=== PATIENT | male | born 1950 | race Caucasian/White ===

== ENCOUNTER 2017-09-16 09:34 | Emergency (ER) | payer MEDICARE, OTHER ==
--- NOTE | 2017-09-16 09:49 | ED Physician Documentation ---
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 He was treated with Coumadin then and has been off of his Coumadin for some time. He is noted pain in the distal part of his thigh posteriorly and in his knee. Pain is worse with standing. He has not had an injury to his knee and does not believe he has been on his feet longer than usual. He is uncertain as to the classification of this prior DVT whether this was classified is provoked or not. 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 Review of Systems Constitutional: denies: Fever Eyes: denies: Decreased vision Ears: denies: Ear pain Nose: denies: Congestion Throat: denies: Sore throat Respiratory: denies: Dyspnea, Cough GI: denies: Nausea, Vomiting : denies: Dysuria Skin: denies: Rash Musculoskeletal: reports: Extremity pain. denies: Neck pain, Back pain PD PAST MEDICAL HISTORY - Past Surgical History Past Surgical History: Yes - Present Medications Home Medications: Ambulatory Orders Medication Instructions Recorded Confirmed Aspirin [Adult Low Dose Aspirin EC] 81 mg PO DAILY 09/16/17 09/16/17 Cholecalciferol (Vitamin D3) 1,000 unit PO DAILY 09/16/17 09/16/17 [Vitamin D3] Multivitamin/Ferrous Sulfate 18 mg PO DAILY 09/16/17 09/16/17 [One-Daily Sldzv-Jsz-Izan Tab] Rivaroxaban [Xarelto] 15 mg PO BID #42 tablet 09/16/17 - Allergies Allergies/Adverse Reactions: Allergies Allergy/AdvReac Type Severity Reaction Status Date / Time No Known Drug Allergies Allergy Verified 09/16/17 09:46 - Social History Does the pt smoke?: No Smoking Status: Never smoker Does the pt drink ETOH?: Yes Does the pt have substance abuse?: No PD ED PE NORMAL - Vitals Vital signs reviewed: Yes (tachy and hypertensive ) - General General: Alert and oriented X 3, No acute distress, Well developed/nourished - HEENT HEENT: Atraumatic, PERRL, EOMI - Neck Neck: Supple, no meningeal sign - Respiratory Respiratory: No respiratory distress - Extremities Extremities: No deformity, No edema, Other (There is tenderness to the posterior aspect of the right thigh distally. There is no palpable joint effusion to the knee and the ligaments are stable. Distal n/v is intact. ) - Neuro Neuro: No motor deficit, No sensory deficit Eye Opening: Spontaneous Motor: Obeys Commands Verbal: Oriented GCS Score: 15 - Psych Psych: Normal mood, Normal affect Results - Vitals Vitals: Vital Signs - 24 hr 09/16/17 09/16/17 09:40 12:27 Temperature 36.8 C Heart Rate 104 H 64 Respiratory 16 18 Rate Blood Pressure 147/86 H 138/86 H O2 Saturation 100 100 Oxygen O2 Source Room air - Rads (name of study) Right lower extremity duplex venous Radiology: Prelim report reviewed (Impression: Positive for deep venous thrombosis from the proximal femoral vein to the popliteal through the posterior tibial and peroneal veins.), EMP read indepedently, See rad report PD MEDICAL DECISION MAKING - ED course Complexity details: reviewed old records, reviewed results, re-evaluated patient , considered differential, d/w patient ED course: 66-year-old male with a DVT in the right thigh. He does have risk factor and this is considered provoked. This is the second provoked DVT the patient has had. He is placed on Xarelto he will be on 15 mg twice daily for 3 weeks followed by 20 mg daily. Departure - Departure Disposition: 01 Home, Self Care Clinical Impression: Dvt femoral (deep venous thrombosis) Qualifiers: Chronicity: acute Laterality: right Qualified Code(s): I82.411 - Acute embolism and thrombosis of right femoral vein Condition: Stable Instructions: ED DVT Follow-Up: La Mcgrath MD [Primary Care Provider] - Prescriptions: Rivaroxaban [Xarelto] 15 mg PO BID #42 tablet Comments: Today it appears you have a deep vein thrombosis in the proximal femoral vein that goes all the way to the popliteal.This is considered a provoked DVT because of your plane travel. Treatment for this will be Xarelto 15 mg twice per day for 3 weeks followed by 20 mg daily. Follow-up Dr. La Mcgrath.
[2017-09-16] MEDS ORDERED: LIDOCAINE 1%-EPI 1:100000 20 ML MDV SUBQ STA (10:15)
[2017-09-16 12:29] VITALS: BP 138/86
--- NOTE | 2017-09-16 12:49 | Ultrasound Preliminary Report ---
Exam: US DUPLEX EXT VEINS RIGHT IMPRESSION: Positive for deep venous thrombosis from the proximal femoral vein to the popliteal throu gh the posterior tibial and peroneal veins. [facility] SITE ID: [id number]
--- NOTE | 2017-09-16 12:51 | Ultrasound Report ---
EXAM: RIGHT LOWER EXTREMITY VENOUS ULTRASOUND EXAM DATE: 09/16/2017 12:06 PM. CLINICAL HISTORY: Posterior lower thigh pain prior DVT. COMPARISON: None. TECHNIQUE: Real-time sonographic vascular imaging was performed by the core composer machine tender through the lower extremity utilizing both color-flow and Doppler spectral analysis. Multiple inside outside sales representative static yeimi ges were saved for review. FINDINGS: Common Femoral Vein (CFV): Thrombus is present. CFV-GSV Junction: Negative. Profunda Femoral Vein (PFV): Normal. Femoral Vein (FV) Prox: Thrombus is present Femoral Vein (FV) Mid: Thrombus is present Femoral Vein (FV) Dist: He is present Popliteal Vein: Thrombus is present Posterior Tibial Veins: Thrombus is present Peroneal Veins: Thrombus is present IMPRESSION: Positive for deep venous thrombosis from the proximal femoral vein to the popliteal throu gh the posterior tibial and peroneal veins. [facility] Referring Provider Line: [phone] SITE ID: [id number]
[2017-09-16] MEDS ORDERED: RIVAROXABAN 15 MG TABLET PO STA (13:04)
== END 2017-09-16 13:24 | disposition home or self-care (01) ==
LOC: ED 09:34
DX: I82.411 Acute embolism and thrombosis of right femoral vein (principal); I82.431 Acute embolism and thrombosis of right popliteal vein; I82.441 Acute embolism and thrombosis of right tibial vein; Z79.82 Long term (current) use of aspirin; Z86.718 Personal history of other venous thrombosis and embolism
CPT/HCPCS: 93971; 99283; 99284; A9270

== ENCOUNTER 2017-09-17 15:26 | Emergency (ER) | payer MEDICARE, OTHER ==
--- NOTE | 2017-09-17 15:41 | ED Physician Documentation ---
PD HPI DYSPNEA - Stated complaint Stated Complaint: SOA/WEAKNESS/DIZZY - Chief complaint Chief Complaint: Cardiac - History obtained from History obtained from: Patient - History of Present Illness Timing - onset: How many hours ago (1), Today Timing - onset during: Light activity Timing - duration: Hours (1) Timing - details: Abrupt onset (he was seen in ED yesterday for couple days leg swelling and pain, and Dx with DVT by U/S. Rx with Xarelto and discharged with low clinical symptoms. Today he was just walking and felt onset of marked dyspnea and lightheadedness/ near syncope. He felt okay with resting, but marked dyspnea with just walking about 50 feet.), Still present Inciting event(s): Exercise. No: Out of meds, URI Improved by: Rest Worsened by: Exertion (minimal) Associated symptoms: Unilateral edema. No: Fever, Cough, Wheezing, Chest pain / discomfort Similar symptoms before: Has not had sx before Recently seen: Emergency Dept (yesterday for Dx of DVT.) Review of Systems Constitutional: denies: Fever Nose: denies: Rhinorrhea / runny nose, Congestion Throat: denies: Sore throat Cardiac: reports: Pedal edema, Calf pain (right leg). denies: Chest pain / pressure, Palpitations Respiratory: reports: Dyspnea. denies: Cough, Wheezing Skin: denies: Rash, Lesions Neurologic: reports: Generalized weakness, Near syncope. denies: Focal weakness , Numbness, Syncope, Headache Endocrine: denies: Easy bruising / bleeding Immunocompromised: denies: Immunocompromised PD PAST MEDICAL HISTORY - Past Medical History Cardiovascular: Deep vein thrombosis Respiratory: None Neuro: None Endocrine/Autoimmune: None - Past Surgical History Past Surgical History: Yes General: Other HEENT: Tonsil/Adenoidectomy - Present Medications Home Medications: Ambulatory Orders Medication Instructions Recorded Confirmed Aspirin [Adult Low Dose Aspirin EC] 81 mg PO DAILY 09/16/17 09/16/17 Cholecalciferol (Vitamin D3) 1,000 unit PO DAILY 09/16/17 09/16/17 [Vitamin D3] Multivitamin/Ferrous Sulfate 18 mg PO DAILY 09/16/17 09/16/17 [One-Daily Kxkgx-Ock-Mtof Tab] Rivaroxaban [Xarelto] 15 mg PO BID #42 tablet 09/16/17 - Allergies Allergies/Adverse Reactions: Allergies Allergy/AdvReac Type Severity Reaction Status Date / Time No Known Drug Allergies Allergy Verified 09/17/17 15:39 - Social History Does the pt smoke?: No Smoking Status: Never smoker Does the pt drink ETOH?: Yes Does the pt have substance abuse?: No - Immunizations Immunizations are current?: Yes - POLST Patient has POLST: No PD ED PE NORMAL - Vitals Vital signs reviewed: Yes - General General: Alert and oriented X 3, No acute distress, Well developed/nourished - HEENT HEENT: Pharynx benign - Neck Neck: Supple, no meningeal sign, No adenopathy - Cardiac Cardiac: RRR, No murmur - Respiratory Respiratory: Clear bilaterally - Abdomen Abdomen: Soft, Non tender - Derm Derm: Normal color, Warm and dry - Extremities Extremities: Other (right leg with tenderness in calf and popliteal area with some edema in lower leg. ) - Neuro Neuro: Alert and oriented X 3, No motor deficit, Normal speech - Psych Psych: Normal mood Results - Vitals Vitals: Vital Signs - 24 hr 09/17/17 09/17/17 09/17/17 15:36 16:07 17:54 Temperature 36.4 C L 36.9 C Heart Rate 117 H 106 H 102 H Respiratory 20 18 26 H Rate Blood Pressure 128/84 H 120/78 122/80 O2 Saturation 99 99 99 09/17/17 09/17/17 18:48 19:47 Temperature 37.2 C 37.8 C H Heart Rate 109 H 109 H Respiratory 19 18 Rate Blood Pressure 136/77 H 109/69 O2 Saturation 98 99 Oxygen O2 Source Room air - Labs Labs: Laboratory Tests 09/17/17 09/17/17 09/17/17 16:00 16:00 16:00 WBC 9.5 RBC 3.61 L Hgb 10.8 L Hct 32.5 L MCV 90.1 MCH 30.1 MCHC 33.4 RDW 14.5 Plt Count 147 MPV 8.6 Neut # 6.9 H Lymph # 1.6 Gates # 0.7 Eos # 0.2 Baso # 0.1 Absolute Nucleated RBC 0.00 Nucleated RBC % 0.0 Sodium 138 Potassium 4.7 Chloride 103 Carbon Dioxide 25 Anion Gap 10.0 BUN 52 H Creatinine 1.0 Estimated GFR (MDRD) 75 L Glucose 140 H Calcium 9.3 Total Bilirubin 0.4 AST 27 ALT 33 Alkaline Phosphatase 59 B-Natriuretic Peptide 29 Total Protein 6.7 Albumin 3.8 Globulin 2.9 Albumin/Globulin Ratio 1.3 Lipase 30 - Rads (name of study) chest CT-A Radiology: Prelim report reviewed (large saddle embolus with signs of right heart strain. ), EMP read contemporaneously PD MEDICAL DECISION MAKING - ED course Complexity details: considered differential, d/w patient, d/w websphere commerce consultant ( Search Optimization Analyst at [facility], who accepts transfer and agrees patient good candidate for catheter directed TPA. Given Heparin here in ED and for transport , so can be stopped as needed for other interventions. ) Departure - Departure Disposition: 02 Transfer Acute Care Hosp Clinical Impression: Dyspnea, Near syncope Saddle embolus of pulmonary artery Qualifiers: Chronicity: acute Acute cor pulmonale presence: with acute cor pulmonale Qualified Code(s): I26.02 - Saddle embolus of pulmonary artery with acute cor pulmonale Condition: Stable
[2017-09-17] MEDS ORDERED: IOPAMIDOL-300 100 ML VIAL ONE (16:07)
[2017-09-17 16:09] LABS: BASOPHILS # (AUTO) 0.1 10^3/uL (0.0-0.1); BASOPHILS % (AUTO) 0.6 %; EOSINOPHILS # (AUTO) 0.2 10^3/uL (0.0-0.7); EOSINOPHILS % (AUTO) 1.7 %; HCT - HEMATOCRIT 32.5 % (42.0-52.0); HGB - HEMOGLOBIN 10.8 g/dL (14.0-18.0); LYMPHOCYTES # (AUTO) 1.6 10^3/uL (1.5-3.5); LYMPHOCYTES % (AUTO) 16.4 %; MEAN CORPUSCULAR HEMOGLOBIN 30.1 pg (27.0-31.0); MEAN CORPUSCULAR HGB CONC 33.4 g/dL (32.0-36.0); MEAN CORPUSCULAR VOLUME 90.1 fL (80.0-94.0); MEAN PLATELET VOLUME 8.6 fL (7.4-11.4); MONOCYTES # (AUTO) 0.7 10^3/uL (0.0-1.0); MONOCYTES % (AUTO) 7.9 %; NEUTROPHILS # (AUTO) 6.9 10^3/uL (1.5-6.6); NEUTROPHILS % (AUTO) 73.4 %; RED BLOOD COUNT 3.61 10^6/uL (4.70-6.10); RED CELL DISTRIBUTION WIDTH 14.5 % (12.0-15.0); UNCORRECTED WHITE BLOOD COUNT 9.5 x10^3/uL; WHITE BLOOD COUNT 9.5 x10^3/uL (4.8-10.8)
[2017-09-17 16:26] LABS: ALBUMIN/GLOBULIN RATIO 1.3 (1.0-2.2); BILIRUBIN,TOTAL 0.4 mg/dL (0.2-1.0); CALCIUM 9.3 mg/dL (8.5-10.3); POTASSIUM 4.7 mmol/L (3.5-5.0); TOTAL PROTEIN 6.7 g/dL (6.7-8.2)
[2017-09-17] MEDS ORDERED: IOPAMIDOL-300 100 ML VIAL IVP ONE (17:18)
--- NOTE | 2017-09-17 17:26 | CT Preliminary Report ---
Exam: CT CHEST ANGIO (PE) IMPRESSION: 1. Extensive bilateral pulmonary emboli with saddle pulmonary embolus. 2. Mild intraventricular septal bowing, which may be seen in the clinical setting of right heart stra in. 3. Large, fluid-filled hiatal hernia. Findings discussed with Dr. Alberto and Dr. Tano Canales by Dr. Martina Anegles on 09/17/2017 at 1720. [facility] The critical result notification system was initiated by Dr. Martina Angeles at 17:07 hrs on 09/17/17. The above critical findings were discussed with Tano Canales by Dr. Martina Angeles at 17:25 hrs on . SITE ID: [id number]
--- NOTE | 2017-09-17 17:29 | CT Report ---
EXAM: CT ANGIOGRAM CHEST EXAM DATE: 09/17/2017 04:52 PM. CLINICAL HISTORY: Known DVT yesterday, with dyspnea/lightheaded today. COMPARISON: None. TECHNIQUE: Routine helical imaging was performed through the chest in the pulmonary arterial phase. I V Contrast: 80 mL Isovue 300. Reconstructions: Coronal 3-D MIP reconstructions.Sagittal and coronal. In accordance with CT protocol optimization, one or more of the following dose reduction techniques w ere utilized for this exam: automated exposure control, adjustment of mA and/or KV based on patient s ize, or use of iterative reconstructive technique. FINDINGS: Pulmonary Arteries: Diagnostic quality: Adequate through the segmental arteries. Saddle pulmonary embolus with emboli in an lobar segmental and subsegmental pulmonary arteries Mild bowing of the interventricular septum. Lungs/Pleura: Minimal biapical pleural parenchymal scarring. No pleural effusion or pneumothorax. Mediastinum: No pericardial effusion. Coronary artery atherosclerosis. Large hiatal hernia, fluid filled. Thoracic Aorta: Normal course and caliber Upper Abdomen: Unremarkable. Other: Mild bilateral gynecomastia. IMPRESSION: 1. Extensive bilateral pulmonary emboli with saddle pulmonary embolus. 2. Mild intraventricular septal bowing, which may be seen in the clinical setting of right heart stra in. 3. Large, fluid-filled hiatal hernia. Findings discussed with Dr. Alberto and Dr. Tano Canales by Dr. Martina Angeles on 09/17/2017 at 1720. RADIA The critical result notification system was initiated by Dr. Martina Angeles at 17:07 hrs on 09/17/17. The above critical findings were discussed with Tano Canales by Dr. Martina Angeles at 17:25 hrs on . Referring Provider Line: [phone] SITE ID: [id number]
[2017-09-17] MEDS ORDERED: HEPARIN 25,000 UNITS/500 ML NS 25,000 UNIT/500 ML BAG IV STA (17:40)
[2017-09-17] MEDS ORDERED: HEPARIN 5,000 UNIT/ML VIAL IVP STA (17:40)
[2017-09-17 19:50] VITALS: BP 109/69
== END 2017-09-17 20:29 | disposition short-term general hospital (02) ==
LOC: ED 15:26
DX: I26.02 Saddle embolus of pulmonary artery with acute cor pulmonale (principal); R06.00 Dyspnea, unspecified; R55 Syncope and collapse; Z79.01 Long term (current) use of anticoagulants; K44.9 Diaphragmatic hernia without obstruction or gangrene; Z79.82 Long term (current) use of aspirin; Z86.718 Personal history of other venous thrombosis and embolism
CPT/HCPCS: 36415; 71275; 80053; 83690; 83880; 84484; 85025; 93005; 96365; 96366; 99284

== ENCOUNTER 2017-10-21 08:13 | Outpatient (CLI) | payer MEDICARE, OTHER ==
--- NOTE | 2017-10-21 23:41 | Ultrasound Report ---
EXAM: AORTIC DOPPLER ULTRASOUND EXAM DATE: 10/21/2017 09:31 AM. CLINICAL HISTORY: Hypertension. Screening ultrasound to exclude abdominal aortic aneurysm. COMPARISON: None. TECHNIQUE: Real-time sonographic imaging of retroperitoneal vascular structures, including color-flow , Doppler flow and spectral analysis was performed by the private eye. Multiple sales representative electric service static images were saved for review. FINDINGS: Aorta: The abdominal aorta was adequately visualized. No evidence for abdominal aortic aneurysm. Aorta: Proximal: Sagittal AP: 2.4 cm. Mid: Transverse: 1.9 x 2.2 cm. Distal: Transverse: 1.7 x 2.0 cm. Iliacs: Right Iliac: AP Dimension: 1.1 x 1.0 cm. Left Iliac: AP Dimension: 1.1 x 1.1 cm. Iliac Vessels: The visualized proximal common iliac arteries are normal in caliber. Other: None. IMPRESSION: Normal. No abdominal aortic aneurysm. [facility] Referring Provider Line: [phone] SITE ID: [id number]
== END 2017-10-21 08:14 | disposition home or self-care (01) ==
LOC: DI 08:13
PROVIDERS: ATTEND Internal Medicine
DX: I10 Essential (primary) hypertension (principal)
CPT/HCPCS: 76706

== ENCOUNTER 2018-07-30 06:04 | Day surgery (SDC) | payer MEDICARE, OTHER ==
[2018-07-30] MEDS ORDERED: LACTATED RINGERS 1,000 ML IV ONE (07:03)
[2018-07-30 08:50] VITALS: BP 101/71
[2018-07-30] MEDS ORDERED: fentaNYL 100 MCG/2 ML VIAL IVP ONE (11:25)
[2018-07-30] MEDS ORDERED: MIDAZOLAM 2 MG/2 ML VIAL IVP ONE (11:25)
== END 2018-07-30 06:05 | disposition home or self-care (01) ==
LOC: SDS 06:04
PROVIDERS: ATTEND Surgery
PROC: 0DBP8ZZ Excision of Rectum, Via Natural or Artificial Opening Endoscopic (ICD-10-PCS; 2018-07-30)
PROC: 0DBH8ZZ Excision of Cecum, Via Natural or Artificial Opening Endoscopic (ICD-10-PCS; principal; 2018-07-30 07:30)
DX: Z12.11 Encounter for screening for malignant neoplasm of colon (principal); D12.0 Benign neoplasm of cecum; K62.1 Rectal polyp; K21.9 Gastro-esophageal reflux disease without esophagitis; F17.290 Nicotine dependence, other tobacco product, uncomplicated; K64.8 Other hemorrhoids; K57.30 Diverticulosis of large intestine without perforation or abscess without bleeding
CPT/HCPCS: 45380; J7120

== ENCOUNTER 2018-11-07 14:59 | Outpatient (CLI) | payer MEDICARE, OTHER ==
--- NOTE | 2018-11-07 16:17 | Ultrasound Report ---
Reason: PHLEBITIS AND THOMBOPHLB OF DEEP VESSELS OF R LOW Procedure Date: 11/07/2018 Accession Number: [id number] / [id number] Procedure: US - Duplex Ext Veins Right CPT Code: FULL RESULT: EXAM: RIGHT LOWER EXTREMITY VENOUS ULTRASOUND EXAM DATE: 11/07/2018 04:00 PM. CLINICAL HISTORY: PHLEBITIS AND THOMBOPHLB OF DEEP VESSELS OF R LOW. COMPARISON: 09/16/2017 TECHNIQUE: Real-time sonographic vascular imaging was performed by the agricultural chemist through the lower extremity utilizing both color-flow and Doppler spectral analysis. Multiple service support representative static images were saved for review. FINDINGS: Right side Common Femoral Vein (CFV): Normal. CFV-GSV Junction: Normal. Profunda Femoral Vein (PFV): Normal. Femoral Vein (FV) Prox: Normal. Femoral Vein (FV) Mid: Normal. Femoral Vein (FV) Dist: Normal. Popliteal Vein: Normal. Posterior Tibial Veins: Normal. Peroneal Veins: Normal. Other: Nonocclusive chronic thrombosis is present in the right greater saphenous vein in the thigh. IMPRESSION: No evidence for deep venous thrombosis right lower extremity. Residual chronic nonocclusive thrombus is seen in the right greater saphenous vein. RADIA
== END 2018-11-07 15:00 | disposition home or self-care (01) ==
LOC: DI 14:59
PROVIDERS: ATTEND Internal Medicine
DX: I82.811 Embolism and thrombosis of superficial veins of right lower extremity (principal)

== ENCOUNTER 2019-09-25 14:27 | Emergency (ER) | payer MEDICARE, OTHER ==
[2019-09-25 15:51] LABS: BASOPHILS % (AUTO) 0.3 %; EOSINOPHILS % (AUTO) 0.4 %; HGB - HEMOGLOBIN 12.3 g/dL (14.0-18.0); LYMPHOCYTES # (AUTO) 0.9 10^3/uL (1.5-3.5); LYMPHOCYTES % (AUTO) 9.6 %; MEAN CORPUSCULAR HEMOGLOBIN 28.4 pg (27.0-31.0); MEAN CORPUSCULAR HGB CONC 32.3 g/dL (32.0-36.0); MEAN PLATELET VOLUME 10.5 fL (7.4-11.4); MONOCYTES # (AUTO) 0.6 10^3/uL (0.0-1.0); MONOCYTES % (AUTO) 7.1 %; NEUTROPHILS # (AUTO) 7.3 10^3/uL (1.5-6.6); NEUTROPHILS % (AUTO) 81.9 %; PLT - PLATELET COUNT 159 10^3/uL (130-450); RED BLOOD COUNT 4.33 10^6/uL (4.70-6.10)
--- NOTE | 2019-09-25 16:02 | ED Physician Documentation ---
PD HPI NVD - Stated complaint Stated Complaint: VOMITTING - Chief complaint Chief Complaint: Abd Pain - History obtained from History obtained from: Patient - History of Present Illness Timing - onset: Yesterday (Onset soon after dinner when he developed nausea and repetitive vomiting. He denied any diarrhea. He continued with nausea and vomiting through the night and into today. He started noticing some coffee- ground material today. He did not notice any blood initially. He denies any bile with it. He was having some mild intermittent upper abdominal pains but no consistent abdominal pain and no distention.) Timing - details: Abrupt onset, Still present Associated symptoms: Abdominal pain (intermittent upper abd pain), Hematemesis. No: Fever, Melena Contributing factors: Anticoagulated (He takes Eliquis twice daily after blood clots 2 years ago.). No: Sick contact, Bad food, Travel, Alcohol use Improved by: No: Eating, Vomiting Worsened by: Eating (He has had increased nausea with any attempted oral intake even with water. He will feel nauseous and have to vomit several minutes or so after trying to eat.) Similar symptoms before: Has not had sx before Recently seen: Not recently seen Review of Systems Constitutional: reports: Chills, Myalgias, Fatigue. denies: Fever Nose: denies: Rhinorrhea / runny nose, Congestion Throat: denies: Sore throat Cardiac: denies: Chest pain / pressure Respiratory: denies: Dyspnea, Cough GI: reports: Abdominal Pain, Nausea, Vomiting, Hematemesis (not initially but after vomiting through the night.). denies: Constipation, Diarrhea : denies: Dysuria, Frequency PD PAST MEDICAL HISTORY - Past Medical History Cardiovascular: High cholesterol, Pulmonary embolism Respiratory: None Endocrine/Autoimmune: None GI: GERD : Benign prostate hypertrophy HEENT: Chronic vision loss Psych: None Musculoskeletal: None Derm: None - Past Surgical History Past Surgical History: Yes General: Colonoscopy, EGD, Other HEENT: Tonsil/Adenoidectomy - Present Medications Home Medications: Ambulatory Orders Medication Instructions Recorded Confirmed Cholecalciferol (Vitamin D3) 1,000 unit PO DAILY 09/16/17 07/27/18 [Vitamin D3] Apixaban [Eliquis] 5 mg PO BID 07/27/18 07/27/18 Enoxaparin [Lovenox] 100 mg SUBQ Q12H 07/27/18 07/27/18 Multivitamin [Multivitamins] 1 each PO DAILY 07/27/18 07/27/18 Pantoprazole Sodium [Protonix] 20 mg PO DAILY 07/27/18 07/27/18 Simvastatin 10 mg PO QPM 07/27/18 07/27/18 Tamsulosin [Flomax] 0.8 mg PO QPM 07/27/18 07/27/18 - Allergies Allergies/Adverse Reactions: Allergies Allergy/AdvReac Type Severity Reaction Status Date / Time No Known Drug Allergies Allergy Verified 09/25/19 14:52 - Social History Does the pt smoke?: No Smoking Status: Never smoker Does the pt drink ETOH?: Yes Does the pt have substance abuse?: No - Immunizations Immunizations are current?: Yes - POLST Patient has POLST: No PD ED PE NORMAL - Vitals Vital signs reviewed: Yes - General General: Alert and oriented X 3, Well developed/nourished. No: No acute distress (He is holding an emesis bag with feeling of nausea and looking as if he is about to vomit.) - HEENT HEENT: Moist mucous membranes, Pharynx benign - Neck Neck: Supple, no meningeal sign, No adenopathy - Cardiac Cardiac: RRR, No murmur - Respiratory Respiratory: Clear bilaterally - Abdomen Abdomen: Soft, Non distended, No organomegaly, Other (There is some mild tenderness in the epigastric and left upper abdomen without any guarding or percussion tenderness. There is no distention.). No: Normal bowel sounds (Diminished) - Male Male : Deferred - Rectal Rectal: Deferred - Back Back: No CVA TTP - Derm Derm: Normal color, Warm and dry - Extremities Extremities: No deformity Results - Vitals Vitals: Vital Signs - 24 hr 09/25/19 09/25/19 09/25/19 14:52 16:10 18:47 Temperature 36.7 C 37.2 C 37.2 C Heart Rate 84 70 73 Respiratory 16 16 16 Rate Blood Pressure 142/80 H 125/87 H 154/94 H O2 Saturation 96 96 98 Oxygen O2 Source Room air - Labs Labs: Laboratory Tests 09/25/19 09/25/19 09/25/19 15:45 15:45 15:45 WBC 9.0 RBC 4.33 L Hgb 12.3 L Hct 38.1 L MCV 88.0 MCH 28.4 MCHC 32.3 RDW 14.0 Plt Count 159 MPV 10.5 Neut # (Auto) 7.3 H Lymph # (Auto) 0.9 L Pi[place] # (Auto) 0.6 Eos # (Auto) 0.0 Baso # (Auto) 0.0 Absolute Nucleated RBC 0.00 Nucleated RBC % 0.0 PT 13.1 H INR 1.2 APTT 27.6 Sodium 142 Potassium 3.9 Chloride 104 Carbon Dioxide 28 Anion Gap 10.0 BUN 25 H Creatinine 1.0 Estimated GFR (MDRD) 75 L Glucose 138 H Calcium 9.5 Total Bilirubin 1.0 AST 32 ALT 38 Alkaline Phosphatase 44 Total Protein 7.8 Albumin 4.7 Globulin 3.1 Albumin/Globulin Ratio 1.5 Lipase 89 H Urine Color Urine Clarity Urine pH Ur Specific Henderson Urine Protein Urine Glucose (UA) Urine Ketones Urine Occult Blood Urine Nitrite Urine Bilirubin Urine Urobilinogen Ur Leukocyte Esterase Urine RBC Urine WBC Ur Squamous Epith Cells Urine Bacteria Urine Mucus Ur Microscopic Review Urine Culture Comments Influenza A (Rapid) Influenza B (Rapid) 09/25/19 09/25/19 17:00 17:10 WBC RBC Hgb Hct MCV MCH MCHC RDW Plt Count MPV Neut # (Auto) Lymph # (Auto) Piute # (Auto) Eos # (Auto) Baso # (Auto) Absolute Nucleated RBC Nucleated RBC % PT INR APTT Sodium Potassium Chloride Carbon Dioxide Anion Gap BUN Creatinine Estimated GFR (MDRD) Glucose Calcium Total Bilirubin AST ALT Alkaline Phosphatase Total Protein Albumin Globulin Albumin/Globulin Ratio Lipase Urine Color YELLOW Urine Clarity CLEAR Urine pH 7.0 Ur Specific Henderson 1.020 Urine Protein 30 H Urine Glucose (UA) NEGATIVE Urine Ketones 15 H Urine Occult Blood NEGATIVE Urine Nitrite NEGATIVE Urine Bilirubin NEGATIVE Urine Urobilinogen 0.2 (NORMAL) Ur Leukocyte Esterase NEGATIVE Urine RBC None Seen Urine WBC 0-3 Ur Squamous Epith Cells NONE SEEN Urine Bacteria None Seen Urine Mucus Marked Strands Ur Microscopic Review INDICATED Urine Culture Comments NOT INDICATED Influenza A (Rapid) Negative Influenza B (Rapid) Negative - Rads (name of study) abd CT Radiology: Prelim report reviewed (There is a dilated portion of the upper stomach above the diaphragm and a decompressed portion in the lower stomach below the diaphragm with a twist appearance to it consistent with a gastric volvulus through the hiatal hernia. .), See rad report PD MEDICAL DECISION MAKING - ED course Complexity details: reviewed results (There is a dilated portion of the upper stomach above the diaphragm and a decompressed portion in the lower stomach below the diaphragm with a twist appearance to it consistent with a gastric volvulus through the hiatal hernia. I described this to the surgery and who was accepting of transfer.), re-evaluated patient (He had improved with some IV fluids and antiemetics. However is still feeling nauseated and did vomit some more coffee-ground materials. His blood pressure and blood count are good. However given the persistent vomiting, I did do a CT scan to ensure there are no obvious obstruction pattern or such.), considered differential (Initially with some feeling of chills and myalgias nausea and vomiting it sounded likely either food poisoning or a viral enteritis. There is no diarrhea. He did not initially have any hematemesis but subsequently after vomiting overnight did have some coffee-ground material which is concerning being on a blood thinner. His abdominal exam was benign. With just showing some mild epigastric tenderness and no peritoneal signs. We will start with IV fluids and antiemetics and acid reducing medicine.), d/w patient, d/w strategic solutions consultant (Talked with Dr. Bruno on-call for surgery who felt the patient is better at a larger facility with other specialties available.) ED course: The patient had been to [facility] previously and so that was our first choice for transfer but they did not have beds available. I talked with surgery at [facility] and he said he was able to accept the transfer given the description of the patient and the CT findings. The patient will be transferred soon to [facility] by ambulance. The surgeon did ask if we could attempt an NG tube to at least decompress the upper portion of the gastrum. Departure - Departure Disposition: 02 Transfer Acute Care Hosp Clinical Impression: Anticoagulant long-term use, Stomach volvulus Nausea and vomiting Qualifiers: Vomiting type: hematemesis Qualified Code(s): K92.0 - Hematemesis Hematemesis Qualifiers: Nausea presence: with nausea Qualified Code(s): K92.0 - Hematemesis Condition: Stable Record reviewed to determine appropriate education?: Yes
[2019-09-25 16:03] LABS: ALBUMIN 4.7 g/dL (3.2-5.5); ALBUMIN/GLOBULIN RATIO 1.5 (1.0-2.2); CALCIUM 9.5 mg/dL (8.5-10.3); TOTAL PROTEIN 7.8 g/dL (6.7-8.2)
[2019-09-25] MEDS ORDERED: ONDANSETRON 4 MG/2 ML VIAL IVP STA ×2 (16:41→18:16)
[2019-09-25] MEDS ORDERED: SODIUM CHLORIDE 0.9% 1,000 ML IV ONE ×3 (16:41→20:14)
[2019-09-25] MEDS ORDERED: FAMOTIDINE 20 MG/2 ML VIAL IVP STA (16:42)
[2019-09-25] MEDS ORDERED: ACETAMINOPHEN 1,000 MG/100 ML 100 ML IV STA (16:42)
[2019-09-25 17:07] LABS: INR 1.2 (0.8-1.2); PT - PROTHROMBIN TIME 13.1 secs (9.9-12.6)
[2019-09-25 17:11] LABS: BILIRUBIN,URINE NEGATIVE (NEGATIVE); GLUCOSE, URINE (UA) NEGATIVE (NEGATIVE); KETONES,URINE (UA) 15 mg/dL (NEGATIVE); LEUKOCYTE ESTERASE, URINE NEGATIVE (NEGATIVE); NITRITE,URINE NEGATIVE (NEGATIVE); OCCULT BLOOD,URINE NEGATIVE (NEGATIVE); PROTEIN,URINE 30 mg/dL (NEGATIVE); UROBILINOGEN,URINE 0.2 (NORMAL) E.U./dL (NORMAL)
[2019-09-25 17:14] LABS: PARTIAL THROMBOPLASTIN TIME 27.6 secs (24.9-33.3)
[2019-09-25 17:15] LABS: CLARITY,URINE CLEAR (CLEAR)
[2019-09-25 17:19] LABS: RBC,URINE None Seen /HPF (0-5); SQUAMOUS EPITHELIAL CELL,UR NONE SEEN (<= Few)
[2019-09-25 17:20] LABS: BACTERIA,URINE None Seen /HPF (None Seen); MUCUS,URINE Marked Strands
[2019-09-25] MEDS ORDERED: IOVERSOL 320 100 ML VIAL IVP ONE ×2 (18:25→18:49)
--- NOTE | 2019-09-25 19:23 | CT Report ---
Reason: upper abd pain and vomiting Procedure Date: 09/25/2019 Accession Number: [id number] / [id number] Procedure: CT - Abdomen/Pelvis W CPT Code: Addended Final Report FULL RESULT: EXAM: CT ABDOMEN AND PELVIS EXAM DATE: 09/25/2019 06:46 PM. CLINICAL HISTORY: Upper abd pain and vomiting. COMPARISONS: CHEST ANGIO 09/17/2017 4:42 PM. TECHNIQUE: Routine helical CT imaging was performed through the abdomen and pelvis. IV contrast: OPTI 320 100ML. Enteric contrast: No. Reconstructions: Coronal and sagittal. In accordance with CT protocol optimization, one or more of the following dose reduction techniques were utilized for this exam: automated exposure control, adjustment of mA and/or KV based on patient size, or use of iterative reconstructive technique. FINDINGS: ABDOMEN: Lung Bases: Large hiatal hernia is present with organoaxial volvulus. The proximal body and fundus are distended with fluid with a transition point as the stomach passes through the hiatus. A portion of the herniated distended proximal stomach is intra-abdominal. The remaining body and stomach are collapsed. Incompletely included lower lungs are grossly clear. Heart size is within normal limits. No basilar effusions. Liver: Unremarkable. Spleen: Unremarkable. Pancreas: Unremarkable. Gallbladder/Bile Ducts: Gallbladder is unremarkable. Biliary tree is normal caliber. Adrenal Glands: Unremarkable. Kidneys: No mass, calculi, or hydronephrosis. Peritoneum/Mesentery/Bowel: No free fluid, free air, or collection. No intestinal obstruction or inflammation. Colonic diverticulosis is present. Lymph nodes: No mesenteric, periportal, or retroperitoneal lymphadenopathy. Vasculature: Abdominal aorta is nonaneurysmal. Portal vein is patent. Hepatic veins are patent. PELVIS: The bladder is unremarkable for the degree of distention. Prostate is present. No pelvic lymphadenopathy. Small fat filled left inguinal hernia. Bones: No suspicious osseous lesions. IMPRESSION: Since the prior chest CT of 09/17/2017, there has been an increase in the large hiatal hernia as well as an increase in the degree of organoaxial rotation. Additionally, the stomach appears obstructed with a transition point to collapsed stomach as the body passes through the hiatus. Findings are overall suspicious for gastric volvulus and obstruction. Surgical consultation is recommended. [facility] The call report notification system was initiated by Dr. Juan Coronado at 07:12 PM on 09/25/2019. ADDENDUM: 09/25/19 21:02 The above call report findings were discussed with Tano Canales by Dr. Juan Coronado at 07:22 PM on 09/25/2019.
[2019-09-25 20:42] LABS: HGB - HEMOGLOBIN 11.8 g/dL (14.0-18.0)
[2019-09-25 20:58] VITALS: BP 125/78
== END 2019-09-25 21:39 | disposition short-term general hospital (02) ==
LOC: ED 14:27
DX: K31.89 Other diseases of stomach and duodenum (principal); K44.9 Diaphragmatic hernia without obstruction or gangrene; K92.0 Hematemesis; Z79.01 Long term (current) use of anticoagulants; Z86.711 Personal history of pulmonary embolism
CPT/HCPCS: 36415; 74177; 80053; 81001; 83690; 85014; 85018; 85025; 85610; 85730; 87275; 87276; 96361; 96365; 96375; 99284; 99285; J0131; Q9967; 81003; 87086

== ENCOUNTER 2019-09-25 21:29 | Outpatient (CLI) | payer MEDICARE, OTHER | END 2019-09-25 21:30 | disposition short-term general hospital (02) | LOC: EMS 21:29 | PROVIDERS: ATTEND Surgery | DX: K92.0 Hematemesis (principal); K31.89 Other diseases of stomach and duodenum; R10.9 Unspecified abdominal pain | CPT/HCPCS: A0425; A0426 ==